=== PATIENT | male | born 1980 | race Caucasian/White ===

== ENCOUNTER 2016-06-15 18:35 | Emergency (ER) | payer OTHER ==
[~2016-06-15] VITALS: Ht 175.3 cm; Wt 87.5 kg
[~2016-06-15 18:35] MED LIST: AZIT250T94 PO; GABAPENTIN; UDROBDM PO
[2016-06-15 18:37] VITALS: Ht 175.3 cm; Wt 87.5 kg
[2016-06-15] MEDS ORDERED: IBUPROFEN 600 MG TAB PO ONE (20:00)
[2016-06-15] MEDS ORDERED: HYDROCODONE/APAP (5/325) TAB PO ONE (20:00)
[2016-06-15] MEDS ORDERED: PRED20TA PO (20:11)
[2016-06-15] MEDS ORDERED: IBUP-1542 PO (20:11)
[2016-06-15] MEDS ORDERED: ALBU18HF INHALATION (20:11)
[2016-06-15] MEDS ORDERED: AZIT250T94 PO (20:11)
--- NOTE | 2016-06-15 20:17 | ERD ---
ER Documentation Chief Complaint Date/Time DATE: 06/15/16 TIME: 20:14 Chief Complaint Cough for 2 weeks now productive with back pain HPI This 35-year-old male presents with a productive cough for last 2 weeks. He is having low back pain from coughing. He has a history of chronic low back pain. He has productive sputum but denies fevers. Has history of asthma but is out of his albuterol. He denies any chest pain, shortness of breath. ROS All systems reviewed and are negative except as per history of present illness. Medications Home Meds Active Scripts Prednisone* (Prednisone*) 20 Mg Tab, 40 MG PO DAILY for 4 Days, TAB Prov:TATUM GARAY MD 06/15/16 Ibuprofen* (Motrin*) 600 Mg Tab, 600 MG PO Q6, #15 TAB Prov:TATUM GARAY MD 06/15/16 Azithromycin* (Zithromax*) 250 Mg Tablet, 250 MG PO .ZPACK DIRECTED, #6 TAB TAKE 500 MG (2 TABS) THE FIRST DAY THEN 250 MG (1 TAB) DAYS 2-5 Prov:TATUM GARAY MD 06/15/16 Albuterol Sulfate* (Ventolin HFA*) 18 Gm Hfa.aer.ad, 2 PUFF INHALATION Q4H, #1 INHALER Prov:TATUM GARAY MD 06/15/16 Guaifenesin-Dextromethorphan* (Robitussin* DM) 100MG/10MG/5ML Syrup, 10 ML PO Q4H Y for COUGH for 5 Days, ML Prov:JASWANT SANTAMARIA NP 04/06/15 Azithromycin* (Zithromax*) 250 Mg Tablet, 250 MG PO .ZPACK DIRECTED, #6 TAB TAKE 500 MG (2 TABS) THE FIRST DAY THEN 250 MG (1 TAB) DAYS 2-5 Prov:JASWANT SANTAMARIA NP 04/06/15 Reported Medications [Gabapentin] No Conflict Check 07/09/11 Allergies Allergies: Coded Allergies: No Known Drug Allergy (Verified Allergy, Mild, 10/13/11) No Known Allergy (Verified , 06/15/16) PMhx/Soc History of Surgery: Yes (LEFT ANKLE; BACK) Anesthesia Reaction: No Hx Neurological Disorder: No Hx Respiratory Disorders: No Hx Cardiac Disorders: No Hx Psychiatric Problems: No Hx Miscellaneous Medical Probl: No Hx Alcohol Use: No Hx Substance Use: No Hx Tobacco Use: No Smoking Status: Never smoker Physical Exam Vitals Vital Signs Date Time Temp Pulse Resp B/P Pulse Ox O2 Delivery O2 Flow Rate FiO2 06/15/16 18:37 97.0 86 20 133/85 99 Physical Exam Const: [] Alert, [id number] per Head: Atraumatic Eyes: Normal Conjunctiva ENT: Normal External Ears, Nose and Mouth. TMs normal oropharynx normal Neck: Full range of motion..~ No meningismus. Resp: Clear to auscultation bilaterally. Slight rhonchi without significant wheeze or rales or retractions Cardio: Regular rate and rhythm, no murmurs Abd: Soft, non tender, non distended. Normal bowel sounds Skin: No petechiae or rashes Back: No midline or flank tenderness. Some tenderness left L4-5 paraspinous muscles without midline tenderness or deformities. Ext: No cyanosis, or edema Neur: Awake and alert Psych: Normal Mood and Affect Results 24 hrs Current Medications Medications (Trade) Dose Ordered Sig/Jad Route PRN Reason Start Time Stop Time Status Last Admin Dose Admin Ibuprofen (Motrin) 600 mg ONCE ONCE PO 06/15/16 20:00 06/15/16 20:01 DC 06/15/16 20:01 Acetaminophen/ Hydrocodone Bitart ([place] (5/325)) 1 tab ONCE ONCE PO 06/15/16 20:00 06/15/16 20:01 DC 06/15/16 20:01 Procedures/MDM Patient given ibuprofen and [place] 5 mg by mouth. Patient has signs and symptoms of acute bronchitis without signs or symptoms of hypoxemia, respiratory distress. Also has exacerbation of the back pain. He was given [place] 5 g here and ibuprofen and will be discharged home with Zithromax, ibuprofen and a short course prednisone and refill of Ventolin. He is advised to follow-up with primary doctor this week or return to the ER for any worsening symptoms. The patient was stable with no new complaints during the ER course. Clinically, there is no current evidence to suggest meningitis, sepsis, acute abdomen, pneumonia, acute coronary syndrome, pulmonary embolism, or any other emergent condition appearing to require further evaluation or hospitalization. The patient should certainly return for any new or worsening symptoms per the aftercare instructions. They should otherwise follow-up with her primary care doctor for reevaluation this week. Departure Diagnosis: Primary Impression: Back pain Back pain location: low back pain Chronicity: acute Back pain laterality: left Sciatica presence: without sciatica Qualified Code: M54.5 - Acute left- sided low back pain without sciatica Additional Impression: Upper respiratory infection URI type: unspecified URI Qualified Code: J06.9 - Upper respiratory tract infection, unspecified type Condition: Stable Patient Instructions: Acute Bronchitis Additional Instructions: Recheck for new or worsening symptoms or primary care doctor. TATUM GARAY MD Jun 15, 2016 20:16
== END 2016-06-15 20:32 | disposition home or self-care (01) ==
LOC: FTE 18:35
DX: M54.5 Low back pain (principal); J06.9 Acute upper respiratory infection, unspecified
CPT/HCPCS: Z7502; Z7610; 99284

== ENCOUNTER 2016-07-17 17:53 | Emergency (ER) | payer OTHER ==
[~2016-07-17] VITALS: Wt 81.0 kg
[~2016-07-17 17:53] MED LIST changes: +ALBU18HF INHALATION; +IBUP-1542 PO; +PRED20TA PO
[2016-07-17] MEDS ORDERED: AMO500 PO (18:14)
[2016-07-17] MEDS ORDERED: NAPR-260 PO (18:15)
--- NOTE | 2016-07-17 18:21 | ERD ---
ER Documentation Chief Complaint Date/Time DATE: 07/17/16 TIME: 18:18 Chief Complaint DENTAL PAIN X 1 WEEK HPI This patient is a 36-year-old male with no significant medical history presenting to the emergency department for left lower molar pain for the past 2 days. He feels the symptoms are worsening. The patient has an appointment with his dentist in 2 days. The patient denies fevers or other symptoms currently. ROS All systems reviewed and are negative except as per history of present illness. Medications Home Meds Active Scripts Naproxen* (Naprosyn*) 500 Mg Tablet, 500 MG PO BID Y for PAIN AND/OR INFLAMMATION, #30 TAB Prov:HOPE DIETZ PA-C 07/17/16 Amoxicillin* (Amoxicillin*) 500 Mg Cap, 500 MG PO TID for 10 Days, #30 CAP Prov:HOPE DIETZ PA-C 07/17/16 Prednisone* (Prednisone*) 20 Mg Tab, 40 MG PO DAILY for 4 Days, TAB Prov:TATUM GARAY MD 06/15/16 Ibuprofen* (Motrin*) 600 Mg Tab, 600 MG PO Q6, #15 TAB Prov:TATUM GARAY MD 06/15/16 Azithromycin* (Zithromax*) 250 Mg Tablet, 250 MG PO .ZPACK DIRECTED, #6 TAB TAKE 500 MG (2 TABS) THE FIRST DAY THEN 250 MG (1 TAB) DAYS 2-5 Prov:TATUM GARAY MD 06/15/16 Albuterol Sulfate* (Ventolin HFA*) 18 Gm Hfa.aer.ad, 2 PUFF INHALATION Q4H, #1 INHALER Prov:TATUM GARAY MD 06/15/16 Guaifenesin-Dextromethorphan* (Robitussin* DM) 100MG/10MG/5ML Syrup, 10 ML PO Q4H Y for COUGH for 5 Days, ML Prov:JASWANT SANTAMARIA NP 04/06/15 Azithromycin* (Zithromax*) 250 Mg Tablet, 250 MG PO .ZPACK DIRECTED, #6 TAB TAKE 500 MG (2 TABS) THE FIRST DAY THEN 250 MG (1 TAB) DAYS 2-5 Prov:JASWANT SANTAMARIA NP 1/17/16 Reported Medications [Gabapentin] No Conflict Check 07/09/11 Allergies Allergies: Coded Allergies: No Known Drug Allergy (Verified Allergy, Mild, 10/13/11) No Known Allergy (Verified , 06/15/16) PMhx/Soc History of Surgery: Yes (LEFT ANKLE; BACK) Anesthesia Reaction: No Hx Neurological Disorder: No Hx Respiratory Disorders: No Hx Cardiac Disorders: No Hx Psychiatric Problems: No Hx Miscellaneous Medical Probl: No Hx Alcohol Use: No Hx Substance Use: No Hx Tobacco Use: No FmHx Noncontributory for chief complaint Physical Exam Vitals Vital Signs Date Time Temp Pulse Resp B/P Pulse Ox O2 Delivery O2 Flow Rate FiO2 07/17/16 17:55 98.0 89 18 139/71 99 Physical Exam Const: Patient is resting comfortably in no acute distress. Head: Atraumatic Eyes: Normal Conjunctiva ENT: Normal External Ears, Nose and Mouth. Mouth: The patient has multiple dental fillings. There appears to be a very early dental abscess to the left lower molar with some surrounding gingivitis. There is no tenderness palpation of the facial structures. There is no warmth to the touch, edema, or erythema to the jaw. Neck: Full range of motion..~ No meningismus. Resp: Clear to auscultation bilaterally Cardio: Regular rate and rhythm, no murmurs Abd: Soft, non tender, non distended. Normal bowel sounds Skin: No petechiae or rashes Back: No midline or flank tenderness Ext: No cyanosis, or edema Neur: Awake and alert Psych: Normal Mood and Affect Procedures/MDM 28-year-old male presents secondary to complaints of left lower molar pain for the past 2 days. On physical examination the patient's vitals are within normal limits. Examination of the mouth shows a possible early dental abscess to the left lower molar. I have low suspicion for deep tissue infection, osteomyelitis, septicemia, or other emergent conditions. The patient is stable for outpatient management with a prescription for amoxicillin and naproxen. The patient does have a appointment with his dentist in the next 48 hours and he was given strict ER return precautions. All questions and concerns were addressed and the patient agrees with the discharge plan and diagnosis. Departure Diagnosis: Primary Impression: Toothache Condition: Fair Patient Instructions: Dental Abscess, Dental Pain Referrals: [facility] YOU HAVE RECEIVED A MEDICAL SCREENING EXAM AND THE RESULTS INDICATE THAT YOU DO NOT HAVE A CONDITION THAT REQUIRES URGENT TREATMENT IN THE EMERGENCY DEPARTMENT. FURTHER EVALUATION AND TREATMENT OF YOUR CONDITION CAN WAIT UNTIL YOU ARE SEEN IN YOUR DOCTORS OFFICE WITHIN THE NEXT 1-2 DAYS. IT IS YOUR RESPONSIBILITY TO MAKE AN APPOINTMENT FOR FOLOW-UP CARE. IF YOU HAVE A PRIMARY DOCTOR --you should call your primary doctor and schedule an appointment IF YOU DO NOT HAVE A PRIMARY DOCTOR YOU CAN CALL OUR PHYSICIAN REFERRAL HOTLINE AT IF YOU CAN NOT AFFORD TO SEE A PHYSICIAN YOU CAN CHOSE FROM THE FOLLOWING [facility] [address] [facility] [address] [facility] [address] [facility] [address] [facility] [address] [facility] [address] [facility] [address] [place] Additional Instructions: Please follow-up with your dentist at your next scheduled appointment. Follow up with your PCP within the next 1-3 days for a more thorough evaluation and a possible referral to a specialist. Return the the emergency department immediately if symptoms worsen or change. If you have any questions regarding medications, ask your pharmacist or us before you leave. If any adverse reactions, occur while taking your medications, discontinue the treatment and return to the emergency department immediately. If any new or worsening symptoms, uncontrolled fevers, or other unexplained symptoms occur, return to the emergency department immediately. Take your medications as directed, and complete the entire course of treatment. HOPE DIETZ PA-C Jul 17, 2016 18:21
== END 2016-07-17 18:15 | disposition home or self-care (01) ==
LOC: FTE 17:53 → E/R 18:15
DX: K08.89 Other specified disorders of teeth and supporting structures (principal)
CPT/HCPCS: 99283

== ENCOUNTER 2016-09-23 15:20 | Emergency (ER) | payer OTHER ==
[~2016-09-23] VITALS: Ht 170.2 cm; Wt 86.5 kg
[~2016-09-23 15:20] MED LIST changes: +AMO500 PO; +NAPR-260 PO
[2016-09-23 15:21] VITALS: Ht 170.2 cm; Wt 86.5 kg
[2016-09-23] MEDS ORDERED: KETOROLAC 30 MG INJ IM STA (16:23)
[2016-09-23] MEDS ORDERED: CYCL-319 PO (16:26)
[2016-09-23] MEDS ORDERED: IBUP-1542 PO (16:26)
--- NOTE | 2016-09-23 16:44 | ERD ---
ER Documentation Chief Complaint Date/Time DATE: 09/23/16 TIME: 16:42 Chief Complaint back pain HPI This is a 36-year-old male presenting to the emergency department complaining of acute on chronic left-sided thoracic back pain since 2009. Patient states that the pain is pressure-like, rating it 4 out of 10 increased with movement. Patient has tried naproxen yesterday without any relief. Patient states in the past he has tried physical therapy but he stopped doing that. He denies any chest pain or shortness of breath ROS All systems reviewed and are negative except as per history of present illness. Medications Home Meds Active Scripts Cyclobenzaprine Hcl* (Cyclobenzaprine Hcl*) 10 Mg Tablet, 10 MG PO TID, #30 TAB Prov:GIBSON TOMLINSON PA-C 09/23/16 Ibuprofen* (Ibuprofen*) 600 Mg Tablet, 600 MG PO Q6H, #30 TAB Prov:GIBSON TOMLINSON PA-C 09/23/16 Naproxen* (Naprosyn*) 500 Mg Tablet, 500 MG PO BID Y for PAIN AND/OR INFLAMMATION, #30 TAB Prov:HOPE DIETZ PA-C 07/17/16 Amoxicillin* (Amoxicillin*) 500 Mg Cap, 500 MG PO TID for 10 Days, #30 CAP Prov:HOPE DIETZ PA-C 07/17/16 Prednisone* (Prednisone*) 20 Mg Tab, 40 MG PO DAILY for 4 Days, TAB Prov:TATUM GARAY MD 06/15/16 Ibuprofen* (Motrin*) 600 Mg Tab, 600 MG PO Q6, #15 TAB Prov:TATUM GARAY MD 06/15/16 Azithromycin* (Zithromax*) 250 Mg Tablet, 250 MG PO .ZPACK DIRECTED, #6 TAB TAKE 500 MG (2 TABS) THE FIRST DAY THEN 250 MG (1 TAB) DAYS 2-5 Prov:TATUM GARAY MD 06/15/16 Albuterol Sulfate* (Ventolin HFA*) 18 Gm Hfa.aer.ad, 2 PUFF INHALATION Q4H, #1 INHALER Prov:TATUM GARAY MD 06/15/16 Guaifenesin-Dextromethorphan* (Robitussin* DM) 100MG/10MG/5ML Syrup, 10 ML PO Q4H Y for COUGH for 5 Days, ML Prov:JASWANT SANTAMARIA NP 04/06/15 Azithromycin* (Zithromax*) 250 Mg Tablet, 250 MG PO .ZPACK DIRECTED, #6 TAB TAKE 500 MG (2 TABS) THE FIRST DAY THEN 250 MG (1 TAB) DAYS 2-5 Prov:JASWANT SANTAMARIA NP 04/06/15 Reported Medications [Gabapentin] No Conflict Check 07/09/11 Allergies Allergies: Coded Allergies: No Known Drug Allergy (Verified Allergy, Mild, 10/13/11) No Known Allergy (Verified , 06/15/16) PMhx/Soc History of Surgery: Yes (LEFT ANKLE; BACK) Anesthesia Reaction: No Hx Neurological Disorder: No Hx Respiratory Disorders: Yes (asthma) Hx Cardiac Disorders: No Hx Psychiatric Problems: No Hx Miscellaneous Medical Probl: No Hx Alcohol Use: No Hx Substance Use: No Hx Tobacco Use: Yes Smoking Status: Current every day smoker Physical Exam Vitals Vital Signs Date Time Temp Pulse Resp B/P Pulse Ox O2 Delivery O2 Flow Rate FiO2 09/23/16 15:21 98.1 66 18 134/77 99 Physical Exam GENERAL: WD/WN, in no apparent distress, non-toxic appearing HENT: NC/AT EYES: Conjunctiva normal NECK: Supple PULM: Normal labored breathing CV: Good capillary refill GI: Non-distended, no guarding BACK: no deformities noted, normal spinal curvature, T tender palpation on the left thoracic region, nontender to palpation on spine midline, full range of motion EXT: No clubbing, cyanosis, or edema NEURO: Moves on all fours, sensation intact, normal gait SKIN: intact PSYCH: Normal mood Results 24 hrs Current Medications Medications (Trade) Dose Ordered Sig/Jad Route PRN Reason Start Time Stop Time Status Last Admin Dose Admin Ketorolac Tromethamine (Toradol) 30 mg ONCE STAT IM 09/23/16 16:23 09/23/16 16:25 DC 09/23/16 16:27 Procedures/MDM This is a 36-year-old male presenting to the emergency department complaining of left-sided thoracic back pain that is chronic in nature. I will low suspicion for any vertebral fracture or dislocation. Patient appears well and neurovascular intact. Low suspicion for cauda equina. In the ED patient was given Toradol and a prescription for ibuprofen and Flexeril. I have discussed the patient to follow-up with primary care physician to get a referral to see a physical therapist. Patient understands and agrees with this plan. Departure Diagnosis: Primary Impression: Back pain Back pain location: thoracic back pain Chronicity: chronic Back pain laterality: left Qualified Code: M54.6 - Chronic left-sided thoracic back pain Condition: Stable Patient Instructions: Back Pain (Acute Or Chronic) Referrals: NO PRIMARY,CARE PHYSICIAN (PCP) Additional Instructions: FOLLOW UP WITH YOUR PRIMARY CARE PHYSICIAN TOMORROW.Return to this facility if you are not improving as expected. Take all medicines as directed. Return to this facility if you are not improving as expected. You have been given a medicine which may cause drowsiness.DO NOT DRIVE OR OPERATE DANGEROUS MACHINERY while taking this medicine! GIBSON TOMLINSON PA-C Sep 23, 2016 16:43
== END 2016-09-23 17:23 | disposition home or self-care (01) ==
LOC: FTE 15:20
DX: M54.6 Pain in thoracic spine (principal); J45.909 Unspecified asthma, uncomplicated; F17.210 Nicotine dependence, cigarettes, uncomplicated
CPT/HCPCS: 96372; J1885; Z7502

== ENCOUNTER 2016-11-24 22:11 | Emergency (ER) | payer SELFPAY ==
[~2016-11-24] VITALS: Ht 175.3 cm; Wt 88.0 kg
[~2016-11-24 22:11] MED LIST changes: +AMOX1TAB10 PO; +CYCL-319 PO
[2016-11-24 22:14] VITALS: Ht 175.3 cm; Wt 88.0 kg
[2016-11-25] MEDS ORDERED: IBUP-1542 PO (17:24)
[2016-11-25] MEDS ORDERED: AMO500 PO (17:24)
== END 2016-11-25 04:52 | disposition left against medical advice (07) ==
LOC: FTE 22:11
DX: Z53.21 Procedure and treatment not carried out due to patient leaving prior to being seen by health care provider (principal)

== ENCOUNTER 2016-11-25 15:39 | Emergency (ER) | payer OTHER ==
[~2016-11-25] VITALS: Ht 175.3 cm; Wt 85.0 kg
[2016-11-25 15:53] VITALS: Ht 175.3 cm; Wt 85.0 kg
[2016-11-25] MEDS ORDERED: AMO500 PO (17:24)
[2016-11-25] MEDS ORDERED: IBUP-1542 PO (17:24)
--- NOTE | 2016-11-25 17:32 | ERD ---
ER Documentation Chief Complaint Date/Time DATE: 11/25/16 TIME: 17:27 Chief Complaint DENTAL PAIN,LEFT LOWER MOLAR HPI 36 year old male comes in with left lower molar pain for 2 weeks. Pain is localized, achy, moderate to severe. He has seen a dentist and was told it would cost $1500 and he decided to opt out of the procedure. He denies fever, trouble swallowing, sore throat. ROS All systems reviewed and are negative except as per history of present illness. Medications Home Meds Active Scripts Ibuprofen* (Motrin*) 600 Mg Tab, 600 MG PO Q6, #30 TAB Prov:LUDIVINA CARBALLO PA-C 11/25/16 Amoxicillin* (Amoxicillin*) 500 Mg Cap, 500 MG PO TID for 7 Days, CAP Prov:LUDIVINA CARBALLO PA-C 11/25/16 Naproxen* (Naprosyn*) 500 Mg Tablet, 500 MG PO BID Y for PAIN AND/OR INFLAMMATION, #20 TAB Prov:HOPE DIETZ PA-C 10/26/16 Amoxicillin/Potassium Clav (Amox-Clav 875-125 mg Tablet) 875-125 mg Tab, 1 TAB PO BID for 7 Days, #14 TAB Prov:HOPE DIETZ PA-C 10/26/16 Cyclobenzaprine Hcl* (Cyclobenzaprine Hcl*) 10 Mg Tablet, 10 MG PO TID, #30 TAB Prov:GIBSON TOMLINSON PA-C 09/23/16 Ibuprofen* (Ibuprofen*) 600 Mg Tablet, 600 MG PO Q6H, #30 TAB Prov:GIBSON TOMLINSON PA-C 09/23/16 Naproxen* (Naprosyn*) 500 Mg Tablet, 500 MG PO BID Y for PAIN AND/OR INFLAMMATION, #30 TAB Prov:HOPE DIETZ PA-C 07/17/16 Amoxicillin* (Amoxicillin*) 500 Mg Cap, 500 MG PO TID for 10 Days, #30 CAP Prov:HOPE DIETZ PA-C 07/17/16 Prednisone* (Prednisone*) 20 Mg Tab, 40 MG PO DAILY for 4 Days, TAB Prov:TATUM GARAY MD 06/15/16 Ibuprofen* (Motrin*) 600 Mg Tab, 600 MG PO Q6, #15 TAB Prov:TATUM GARAY MD 06/15/16 Azithromycin* (Zithromax*) 250 Mg Tablet, 250 MG PO .ZPACK DIRECTED, #6 TAB TAKE 500 MG (2 TABS) THE FIRST DAY THEN 250 MG (1 TAB) DAYS 2-5 Prov:TATUM GARAY MD 06/15/16 Albuterol Sulfate* (Ventolin HFA*) 18 Gm Hfa.aer.ad, 2 PUFF INHALATION Q4H, #1 INHALER Prov:TATUM GARAY MD 06/15/16 Guaifenesin-Dextromethorphan* (Robitussin* DM) 100MG/10MG/5ML Syrup, 10 ML PO Q4H Y for COUGH for 5 Days, ML Prov:JASWANT SANTAMARIA NP 04/06/15 Azithromycin* (Zithromax*) 250 Mg Tablet, 250 MG PO .ZPACK DIRECTED, #6 TAB TAKE 500 MG (2 TABS) THE FIRST DAY THEN 250 MG (1 TAB) DAYS 2-5 Prov:JASWANT SANTAMARIA NP 04/06/15 Reported Medications [Gabapentin] No Conflict Check 07/09/11 Allergies Allergies: Coded Allergies: No Known Drug Allergy (Verified Allergy, Mild, 10/13/11) No Known Allergy (Verified , 06/15/16) PMhx/Soc History of Surgery: Yes (LEFT ANKLE; BACK) Anesthesia Reaction: No Hx Neurological Disorder: No Hx Respiratory Disorders: Yes (asthma) Hx Cardiac Disorders: No Hx Psychiatric Problems: No Hx Miscellaneous Medical Probl: No Hx Alcohol Use: No Hx Substance Use: No Hx Tobacco Use: Yes Smoking Status: Current every day smoker Physical Exam Vitals Vital Signs Date Time Temp Pulse Resp B/P Pulse Ox O2 Delivery O2 Flow Rate FiO2 11/25/16 15:53 97.4 99 18 131/72 98 Physical Exam General: Well-developed, well-nourished. The patient appears in no acute distress. HEENT: Head is normocephalic, atraumatic. No scleral icterus. Left lower molar dentition is intact, no abscess, normal gingiva, oropharynx is clear. No trismus, drooling. Neck: Supple. Nontender. Lungs: Clear to auscultation. Normal air movement. Heart: Regular rate and rhythm. S1 and S2 are normal. No murmurs, gallops, or rubs. Abdomen: Nondistended. Extremities: No clubbing or cyanosis. Moving extremities x 4. No weakness. Neurologic: Alert and oriented 3. No focal deficits. Normal speech and gait. Skin: Normal turgor. No rash or lesions. Procedures/MDM 36-year-old male comes in with left lower molar pain, patient was told by a dentist that he likely needs more dental work and may have an infection. There is no evidence of any dental abscess, cellulitis, peritonsillar abscess or any other obstructive process. Patient was advised to follow-up with a dentist closely, he was given referral information to [facility] dentist. Departure Diagnosis: Primary Impression: Toothache Condition: Good Patient Instructions: Dental Pain Referrals: [facility] D[facility] ([facility] walk in clinic) Additional Instructions: Return to the DENTIST for repeat exam. Return sooner if your condition worsens before then. LUDIVINA CARBALLO PA-C Nov 25, 2016 17:32
== END 2016-11-25 17:33 | disposition home or self-care (01) ==
LOC: FTE 15:39
DX: K08.89 Other specified disorders of teeth and supporting structures (principal); J45.909 Unspecified asthma, uncomplicated; F17.210 Nicotine dependence, cigarettes, uncomplicated
CPT/HCPCS: 99283

== ENCOUNTER 2016-11-26 22:31 | Emergency (ER) | payer SELFPAY ==
[2016-11-27] MEDS ORDERED: CYCL-319 PO (04:21)
== END 2016-11-27 08:09 | disposition left against medical advice (07) ==
LOC: FTE 22:31
DX: Z53.21 Procedure and treatment not carried out due to patient leaving prior to being seen by health care provider (principal)

== ENCOUNTER 2016-11-27 02:59 | Emergency (ER) | payer OTHER ==
[~2016-11-27] VITALS: Ht 175.3 cm; Wt 87.5 kg
[2016-11-27 03:26] VITALS: Ht 175.3 cm; Wt 87.5 kg
[2016-11-27] MEDS ORDERED: KETOROLAC 30 MG INJ IM STA (04:16)
[2016-11-27] MEDS ORDERED: CYCL-319 PO (04:21)
[2016-11-27] MEDS ORDERED: IBUPROFEN 600 MG TAB PO ONE (04:30)
[2016-11-27 04:34] VITALS: BP 119/81; PULSE 71; RESP 16; TEMP 98.1
--- NOTE | 2016-11-27 05:01 | ERD ---
ER Documentation Chief Complaint Date/Time DATE: 11/27/16 TIME: 04:59 Chief Complaint Back pain possibly mascular and possible cyst. HPI 36-year-old male comes in with right-sided lateral back pain that he has had for approximately 4 days after doing of being toss. Patient states that he feels like there is the "ball" where his pain is, and it hurts every time he moves or presses on it. The pain is nonradiating. He denies any chest pain, shortness of breath. He denies hematuria, urinary complaints. He denies fevers or chills. ROS All systems reviewed and are negative except as per history of present illness. Medications Home Meds Active Scripts Cyclobenzaprine Hcl* (Cyclobenzaprine Hcl*) 10 Mg Tablet, 10 MG PO TID, #15 TAB Prov:LUDIVINA CARBALLO PA-C 11/27/16 Ibuprofen* (Motrin*) 600 Mg Tab, 600 MG PO Q6, #30 TAB Prov:LUDIVINA CARBALLO PA-C 11/25/16 Amoxicillin* (Amoxicillin*) 500 Mg Cap, 500 MG PO TID for 7 Days, CAP Prov:LUDIVINA CARBALLO PA-C 11/25/16 Naproxen* (Naprosyn*) 500 Mg Tablet, 500 MG PO BID Y for PAIN AND/OR INFLAMMATION, #20 TAB Prov:HOPE DIETZ PA-C 10/26/16 Amoxicillin/Potassium Clav (Amox-Clav 875-125 mg Tablet) 875-125 mg Tab, 1 TAB PO BID for 7 Days, #14 TAB Prov:HOPE DIETZ PA-C 10/26/16 Cyclobenzaprine Hcl* (Cyclobenzaprine Hcl*) 10 Mg Tablet, 10 MG PO TID, #30 TAB Prov:GIBSON TOMLINSON PA-C 09/23/16 Ibuprofen* (Ibuprofen*) 600 Mg Tablet, 600 MG PO Q6H, #30 TAB Prov:GIBSON TOMLINSON PA-C 09/23/16 Naproxen* (Naprosyn*) 500 Mg Tablet, 500 MG PO BID Y for PAIN AND/OR INFLAMMATION, #30 TAB Prov:HOPE DIETZ PA-C 07/17/16 Amoxicillin* (Amoxicillin*) 500 Mg Cap, 500 MG PO TID for 10 Days, #30 CAP Prov:HOPE DIETZ PA-C 07/17/16 Prednisone* (Prednisone*) 20 Mg Tab, 40 MG PO DAILY for 4 Days, TAB Prov:TATUM GARAY MD 06/15/16 Ibuprofen* (Motrin*) 600 Mg Tab, 600 MG PO Q6, #15 TAB Prov:TATUM GARAY MD 06/15/16 Azithromycin* (Zithromax*) 250 Mg Tablet, 250 MG PO .ZPACK DIRECTED, #6 TAB TAKE 500 MG (2 TABS) THE FIRST DAY THEN 250 MG (1 TAB) DAYS 2-5 Prov:TATUM GARAY MD 06/15/16 Albuterol Sulfate* (Ventolin HFA*) 18 Gm Hfa.aer.ad, 2 PUFF INHALATION Q4H, #1 INHALER Prov:TATUM GARAY MD 06/15/16 Guaifenesin-Dextromethorphan* (Robitussin* DM) 100MG/10MG/5ML Syrup, 10 ML PO Q4H Y for COUGH for 5 Days, ML Prov:JASWANT SANTAMARIA NP 04/06/15 Azithromycin* (Zithromax*) 250 Mg Tablet, 250 MG PO .ZPACK DIRECTED, #6 TAB TAKE 500 MG (2 TABS) THE FIRST DAY THEN 250 MG (1 TAB) DAYS 2-5 Prov:JASWANT SANTAMARIA NP 04/06/15 Reported Medications [Gabapentin] No Conflict Check 07/09/11 Allergies Allergies: Coded Allergies: No Known Allergy (Verified , 06/15/16) PMhx/Soc History of Surgery: Yes (LEFT ANKLE; BACK) Anesthesia Reaction: No Hx Neurological Disorder: No Hx Respiratory Disorders: Yes (asthma) Hx Cardiac Disorders: No Hx Psychiatric Problems: No Hx Miscellaneous Medical Probl: No Hx Alcohol Use: No Hx Substance Use: No Hx Tobacco Use: Yes Smoking Status: Never smoker Physical Exam Vitals Vital Signs Date Time Temp Pulse Resp B/P Pulse Ox O2 Delivery O2 Flow Rate FiO2 11/27/16 04:34 98.1 71 16 119/81 97 Room Air 11/27/16 03:26 98.7 99 20 157/91 99 Physical Exam General: Well-developed, well-nourished. The patient appears in no acute distress. HEENT: Head is normocephalic, atraumatic. No scleral icterus. Neck: Supple. Nontender. Lungs: Clear to auscultation. Normal air movement. Heart: Regular rate and rhythm. S1 and S2 are normal. No murmurs, gallops, or rubs. Abdomen: Soft, nontender, nondistended. Bowel sounds are normoactive. No CVA tenderness Back: Palpable pain on the right lateral back in the thoracic region. There is no midline tenderness, there are no rashes appreciated. No skin changes. Extremities: No clubbing or cyanosis. Normal pulses. Moving extremities x 4. No weakness. Neurologic: Alert and oriented 3. No focal deficits. Skin: Normal turgor. No rash or lesions. Results 24 hrs Current Medications Medications (Trade) Dose Ordered Sig/Jad Route PRN Reason Start Time Stop Time Status Last Admin Dose Admin Ketorolac Tromethamine (Toradol) 30 mg ONCE STAT IM 11/27/16 04:16 11/27/16 04:19 DC Ibuprofen (Motrin) 600 mg ONCE ONCE PO 11/27/16 04:30 11/27/16 04:31 DC 11/27/16 04:25 Procedures/MDM 36-year-old male comes emergency department with thoracic back pain, consistent with a muscle spasm. Patient was offered Toradol, he states he would rather take the pill. Upon reviewing his electronic medical record, it appears that the patient frequency emergency department for multiple complaints, as well as dental pain which patient was seen less than 2 days ago for. He already has a prescription for ibuprofen, I have asked him to continue that pain medication, as it was prescribed by me for his dental pain. Patient will be given Flexeril additionally to add to his prescriptions. I doubt acute coronary syndrome, dissection, cauda equina, shingles, abscess, kidney stone, pyelonephritis. Departure Diagnosis: Primary Impression: Thoracic myofascial strain Condition: Good Patient Instructions: Thoracic Strain LUDIVINA CARBALLO PA-C Nov 27, 2016 05:01
== END 2016-11-27 04:32 | disposition home or self-care (01) ==
LOC: FTE 02:59
DX: S29.012A Strain of muscle and tendon of back wall of thorax, initial encounter (principal); J45.909 Unspecified asthma, uncomplicated; X58.XXXA Exposure to other specified factors, initial encounter; Y92.9 Unspecified place or not applicable; Z87.891 Personal history of nicotine dependence
CPT/HCPCS: Z7502; Z7610; 99283

== ENCOUNTER 2016-12-16 23:09 | Emergency (ER) | payer OTHER ==
[~2016-12-16] VITALS: Ht 172.7 cm; Wt 87.0 kg
[~2016-12-16 23:09] MED LIST changes: -AMO500 PO; +AMOX500C2 PO
[2016-12-16 23:12] VITALS: Ht 172.7 cm; Wt 87.0 kg
[2016-12-17] MEDS ORDERED: AMOX500C2 PO (00:30)
[2016-12-17] MEDS ORDERED: IBUP-1542 PO (00:30)
--- NOTE | 2016-12-17 03:38 | ERD ---
ER Documentation Chief Complaint Date/Time DATE: 12/17/16 TIME: 03:35 Chief Complaint toothache HPI Patient is a 36-year-old male presenting to the emergency department with complaints of constant left lower molar pain ongoing daily for the past 2 days. He denies fevers, chills, or other symptoms currently. ROS All systems reviewed and are negative except as per history of present illness. Medications Home Meds Active Scripts Amoxicillin* (Amoxicillin*) 500 Mg Cap, 500 MG PO TID for 5 Days, #15 CAP Prov:HOPE DIETZ PA-C 12/17/16 Ibuprofen* (Motrin*) 600 Mg Tab, 600 MG PO Q6, #30 TAB Prov:HOPE DIETZ PA-C 12/17/16 Cyclobenzaprine Hcl* (Cyclobenzaprine Hcl*) 10 Mg Tablet, 10 MG PO TID, #15 TAB Prov:LUDIVINA CARBALLO PA-C 11/27/16 Ibuprofen* (Motrin*) 600 Mg Tab, 600 MG PO Q6, #30 TAB Prov:LUDIVINA CARBALLO PA-C 11/25/16 Amoxicillin* (Amoxicillin*) 500 Mg Cap, 500 MG PO TID for 7 Days, CAP Prov:LUDIVINA CARBALLO PA-C 11/25/16 Naproxen* (Naprosyn*) 500 Mg Tablet, 500 MG PO BID Y for PAIN AND/OR INFLAMMATION, #20 TAB Prov:HOPE DIETZ PA-C 10/26/16 Amoxicillin/Potassium Clav (Amox-Clav 875-125 mg Tablet) 875-125 mg Tab, 1 TAB PO BID for 7 Days, #14 TAB Prov:HOPE DIETZ PA-C 10/26/16 Cyclobenzaprine Hcl* (Cyclobenzaprine Hcl*) 10 Mg Tablet, 10 MG PO TID, #30 TAB Prov:GIBSON TOMLINSON PA-C 09/23/16 Ibuprofen* (Ibuprofen*) 600 Mg Tablet, 600 MG PO Q6H, #30 TAB Prov:GIBSON TOMLINSON PA-C 09/23/16 Naproxen* (Naprosyn*) 500 Mg Tablet, 500 MG PO BID Y for PAIN AND/OR INFLAMMATION, #30 TAB Prov:HOPE DIETZ PA-C 4/29/17 Amoxicillin* (Amoxicillin*) 500 Mg Cap, 500 MG PO TID for 10 Days, #30 CAP Prov:HOPE DIETZ PA-C 07/17/16 Prednisone* (Prednisone*) 20 Mg Tab, 40 MG PO DAILY for 4 Days, TAB Prov:TATUM GARAY MD 06/15/16 Ibuprofen* (Motrin*) 600 Mg Tab, 600 MG PO Q6, #15 TAB Prov:TATUM GARAY MD 06/15/16 Azithromycin* (Zithromax*) 250 Mg Tablet, 250 MG PO .ZPACK DIRECTED, #6 TAB TAKE 500 MG (2 TABS) THE FIRST DAY THEN 250 MG (1 TAB) DAYS 2-5 Prov:TATUM GARAY MD 06/15/16 Albuterol Sulfate* (Ventolin HFA*) 18 Gm Hfa.aer.ad, 2 PUFF INHALATION Q4H, #1 INHALER Prov:TATUM GARAY MD 06/15/16 Guaifenesin-Dextromethorphan* (Robitussin* DM) 100MG/10MG/5ML Syrup, 10 ML PO Q4H Y for COUGH for 5 Days, ML Prov:JASWANT SANTAMARIA NP 04/06/15 Azithromycin* (Zithromax*) 250 Mg Tablet, 250 MG PO .ZPACK DIRECTED, #6 TAB TAKE 500 MG (2 TABS) THE FIRST DAY THEN 250 MG (1 TAB) DAYS 2-5 Prov:JASWANT SANTAMARIA NP 04/06/15 Reported Medications [Gabapentin] No Conflict Check 07/09/11 Allergies Allergies: Coded Allergies: No Known Allergy (Verified , 06/15/16) PMhx/Soc History of Surgery: Yes (LEFT ANKLE; BACK) Anesthesia Reaction: No Hx Neurological Disorder: No Hx Respiratory Disorders: Yes (asthma) Hx Cardiac Disorders: No Hx Psychiatric Problems: No Hx Miscellaneous Medical Probl: No Hx Alcohol Use: No Hx Substance Use: No Hx Tobacco Use: Yes Smoking Status: Current every day smoker Physical Exam Vitals Vital Signs Date Time Temp Pulse Resp B/P Pulse Ox O2 Delivery O2 Flow Rate FiO2 12/16/16 23:12 97.2 88 20 133/63 96 Physical Exam Const: Toxic, well-appearing male in no acute distress. Head: Atraumatic Eyes: Normal Conjunctiva ENT: Normal External Ears, Nose and Mouth. Poor dentition, gingivitis noted. There is slight swelling to the gums noted to the left lower molar but no evidence of dental abscess. Back: No midline or flank tenderness Ext: No cyanosis, or edema Neur: Awake and alert Psych: Normal Mood and Affect Procedures/MDM 36-year-old male presents to the emergency department with complaints of dental pain. No evidence of dental abscess, however there was some gingivitis noted and the patient was given a prescription for amoxicillin and ibuprofen for possible infection and pain. Strict ER return precautions were discussed. The patient is to have close follow-up with his dentist and primary care physician. Departure Diagnosis: Primary Impression: Toothache Condition: Fair Patient Instructions: Dental Pain Referrals: [facility] YOU HAVE RECEIVED A MEDICAL SCREENING EXAM AND THE RESULTS INDICATE THAT YOU DO NOT HAVE A CONDITION THAT REQUIRES URGENT TREATMENT IN THE EMERGENCY DEPARTMENT. FURTHER EVALUATION AND TREATMENT OF YOUR CONDITION CAN WAIT UNTIL YOU ARE SEEN IN YOUR DOCTORS OFFICE WITHIN THE NEXT 1-2 DAYS. IT IS YOUR RESPONSIBILITY TO MAKE AN APPOINTMENT FOR FOLOW-UP CARE. IF YOU HAVE A PRIMARY DOCTOR --you should call your primary doctor and schedule an appointment IF YOU DO NOT HAVE A PRIMARY DOCTOR YOU CAN CALL OUR PHYSICIAN REFERRAL HOTLINE AT IF YOU CAN NOT AFFORD TO SEE A PHYSICIAN YOU CAN CHOSE FROM THE FOLLOWING [facility] [place] [address] [facility]. [facility] [address] [facility] [facility] [address] [facility] [facility] [address] [facility]. [facility] [address] [facility]. [facility] [address] Additional Instructions: Follow up with your PCP within the next 1-3 days for a repeat evaluation. If you require a referral to a specialist, your Primary Care Provider may be able to provide this for you. In most patient cases, a referral is not required. If you have further questions regarding this matter, please ask your Primary Care Provider. Return the the emergency department immediately if symptoms worsen or change. If you have any questions regarding medications, ask your pharmacist or us before you leave. If any adverse reactions, occur while taking your medications, discontinue the treatment and return to the emergency department immediately. If any new or worsening symptoms, uncontrolled fevers, or other unexplained symptoms occur, return to the emergency department immediately. Take your medications as directed, and complete the entire course of treatment. HOPE DIETZ PA-C Dec 17, 2016 03:37
== END 2016-12-17 00:37 | disposition home or self-care (01) ==
LOC: FTE 23:09
DX: K08.89 Other specified disorders of teeth and supporting structures (principal); J45.909 Unspecified asthma, uncomplicated; F17.210 Nicotine dependence, cigarettes, uncomplicated
CPT/HCPCS: 99283

== ENCOUNTER 2017-01-10 22:10 | Emergency (ER) | payer SELFPAY ==
[~2017-01-10] VITALS: Ht 175.3 cm; Wt 90.9 kg
[2017-01-10 23:16] VITALS: Ht 175.3 cm; Wt 90.9 kg
== END 2017-01-11 02:18 | disposition left against medical advice (07) ==
LOC: E/R 22:10
DX: Z53.21 Procedure and treatment not carried out due to patient leaving prior to being seen by health care provider (principal)

== ENCOUNTER 2018-12-06 19:10 | Emergency (ER) | payer OTHER ==
[~2018-12-06] VITALS: Ht 175.3 cm; Wt 98.3 kg
[~2018-12-06 19:10] MED LIST changes: +AZIT250T PO; -AZIT250T94 PO; +CEPH-443 PO; -CYCL-319 PO; +CYCL10TA7 PO; +GUAI5SYR2 PO; -NAPR-260 PO; +NAPR-985 PO; -UDROBDM PO
[2018-12-06 19:26] VITALS: BP 137/85; PULSE 65; RESP 18; Ht 175.3 cm; Wt 98.3 kg
== END 2018-12-06 19:45 | disposition home or self-care (01) ==
LOC: E/R 19:10
DX: S01.531A Puncture wound without foreign body of lip, initial encounter (principal); S01.511A Laceration without foreign body of lip, initial encounter; J45.909 Unspecified asthma, uncomplicated; W45.8XXA Other foreign body or object entering through skin, initial encounter; Y92.9 Unspecified place or not applicable
CPT/HCPCS: 12011; Z7502